=== PATIENT | female | born 1960 | race Caucasian/White ===

== ENCOUNTER 2016-11-18 13:54 | Emergency (ER) | payer OTHER ==
[~2016-11-18] VITALS: Ht 170.2 cm; Wt 98.4 kg
[2016-11-18 14:26] VITALS: BP 150/71
== END 2016-11-18 17:15 | disposition home or self-care (01) ==
LOC: ED 17:09
DX: M62.838 Other muscle spasm (principal)
CPT/HCPCS: 99284